=== PATIENT | female | born 1940 | race Caucasian/White ===

== ENCOUNTER → 2020-05-31 | Outpatient (CLI) | payer MEDICARE, BC ==
[~2020-05-31] MED LIST: ASPI81CH PO; Cleocin HCl300 MG PO; FISH OIL + D31 EACH PO; HYDR1TAB94 PO; SIMV40 PO; Senna S Tablet1 EACH
[2020-06-01 13:10] LABS: HPV 16 Negative (Negative); HPV 18 Negative (Negative); HPV OTHER HR TYPES Negative (Negative)
== END | disposition home or self-care (01) ==
LOC: LAB SHORT 16:14 → LAB 16:14
PROVIDERS: Obstetrics & Gynecology
DX: Z01.419 Encounter for gynecological examination (general) (routine) without abnormal findings (principal); R35.0 Frequency of micturition; Z87.440 Personal history of urinary (tract) infections
CPT/HCPCS: 87086; 87624; G0123

== ENCOUNTER → 2021-05-07 | Outpatient (CLI) | payer MEDICARE, BC ==
[2021-05-07 12:00] LABS: Source, Urine Clean Catch
[2021-05-07 13:09] LABS: Appearance, Urine Clear (Clear); Bilirubin, Urine Neg (Neg); Blood, Urine 3+ (Neg); Color, Urine Yellow (P-Yellow); Glucose Qualitative, Urine Neg (Neg); Ketones, Urine Neg (Neg); Leukocyte Esterase, Urine 1+ (Neg); Nitrite, Urine Neg (Neg); Protein, Urine Neg (Neg); Urobilinogen, Urine NORM (Normal)
[2021-05-07 14:03] LABS: Bacteria Few /hpf; White Blood Cells, Urine 0-2 /hpf (0-5)
[2021-05-07 14:04] LABS: Hyaline Casts 0-2 /lpf (0-2); Squamous Epithelial Cells Mod /hpf (Few)
== END | disposition home or self-care (01) ==
LOC: LAB SHORT 11:59 → LAB FUT 05-07 11:50
PROVIDERS: Internal Medicine
DX: N39.0 Urinary tract infection, site not specified (principal)
CPT/HCPCS: 81001; 87086

== ENCOUNTER → 2021-05-15 | Outpatient (CLI) | payer MEDICARE, BC ==
[2021-05-15 12:23] LABS: Source, Urine Clean Catch
[2021-05-15 13:29] LABS: Appearance, Urine Hazy (Clear); Bilirubin, Urine Neg (Neg); Blood, Urine 3+ (Neg); Color, Urine Amber (P-Yellow); Glucose Qualitative, Urine Neg (Neg); Ketones, Urine Neg (Neg); Leukocyte Esterase, Urine 1+ (Neg); Nitrite, Urine Neg (Neg); Protein, Urine 1+ (Neg); Urobilinogen, Urine NORM (Normal)
[2021-05-15 14:40] LABS: Bacteria Mod /hpf; Squamous Epithelial Cells Mod /hpf (Few)
[2021-05-15 14:41] LABS: Mucus Light (0-Heavy)
== END | disposition home or self-care (01) ==
LOC: LAB SHORT 12:01 → LAB 12:01
PROVIDERS: Internal Medicine
DX: N39.0 Urinary tract infection, site not specified (principal)
CPT/HCPCS: 81001; 87086

== ENCOUNTER 2023-05-17 15:51 | Inpatient (IN) | payer OTHER, MEDICARE, BC ==
[~2023-05-17] VITALS: Ht 167.6 cm; Wt 83.2 kg
[~2023-05-17 15:51] MED LIST changes: +Aspir 8181 MG PO; +CALCIUM 500 MG1 EAC2 PO; +LOSA50 PO; +TUMERIC; +VITAMIN B-122000 MC1 PO
[2023-05-17 16:14] LABS: BASOPHILS ABSOLUTE AUTO 0.07 K/mm3 (0.00-0.23); BASOPHILS PERCENT AUTO 1 % (0-2); EOSINOPHILS ABSOLUTE AUTO 0.09 K/mm3 (0.00-0.68); EOSINOPHILS PERCENT AUTO 1 % (0-6); Hematocrit 39.8 % (33.0-51.0); Hemoglobin 13.6 g/dL (11.5-16.0); IMMATURE GRAN ABSOLUTE AUTO 0.07 K/mm3 (0.00-0.10); IMMATURE GRAN PERCENT AUTO 1 % (0-1); LYMPHOCYTES ABSOLUTE AUTO 2.53 K/mm3 (0.84-5.20); LYMPHOCYTES PERCENT AUTO 23 % (21-46); MONOCYTES ABSOLUTE AUTO 0.59 K/mm3 (0.16-1.47); MONOCYTES PERCENT AUTO 5 % (4-13); Mean Corpuscular HGB 29.2 pg (26.0-34.0); Mean Corpuscular HGB Conc 34.2 g/dL (31.5-36.5); Mean Corpuscular Volume 85 fL (80-100); Mean Platelet Volume 9.8 fL (9.1-12.4); NEUTROPHILS ABSOLUTE AUTO 7.75 K/mm3 (1.96-9.15); NEUTROPHILS PERCENT AUTO 70 % (41-73); Platelet Count 179 K/mm3 (150-400); RDW Standard Deviation 37.2 fL (35.1-46.3); Red Blood Cell Count 4.66 M/mm3 (3.80-5.20)
[2023-05-17 16:45] LABS: Albumin, Blood 3.4 g/dL (3.4-5.0); Bilirubin, Total 0.4 mg/dL (0.1-1.0); Creatinine, Blood 0.82 mg/dL (0.40-1.00); Globulin, Blood 3.3 g/dL (2.2-4.0); Potassium, Blood 4.1 mmol/L (3.5-5.5); Total Protein, Blood 6.7 g/dL (6.4-8.2)
[2023-05-17] MEDS ORDERED: PROBIOTIC1 EA13 PO (19:01)
[2023-05-17 20:28] VITALS: BP 161/83
[2023-05-17] MEDS ORDERED: DOCU100 PO (20:39)
[2023-05-18] VITALS (16 sets, daily range): BP systolic 108–159; BP diastolic 49–99
--- NOTE | 2023-05-18 05:33 | NUR ---
NOC SHIFT SUMMARY: PT. ADMITTED AFTER A MECHANICAL FALL WITH LEFT HIP FRACTURE. SURGERY SCHEDULED FOR TODAY. PT. HAS BEEN NPO SINCE MIDNIGHT. TORADOL GIVEN ONCE. NS AT 100 ML/HR. A&O X4.
[2023-05-18 10:04] LABS: BASOPHILS ABSOLUTE AUTO 0.06 K/mm3 (0.00-0.23); BASOPHILS PERCENT AUTO 1 % (0-2); EOSINOPHILS ABSOLUTE AUTO 0.13 K/mm3 (0.00-0.68); EOSINOPHILS PERCENT AUTO 2 % (0-6); Hematocrit 34.7 % (33.0-51.0); Hemoglobin 11.9 g/dL (11.5-16.0); IMMATURE GRAN ABSOLUTE AUTO 0.02 K/mm3 (0.00-0.10); IMMATURE GRAN PERCENT AUTO 0 % (0-1); LYMPHOCYTES ABSOLUTE AUTO 1.93 K/mm3 (0.84-5.20); LYMPHOCYTES PERCENT AUTO 23 % (21-46); MONOCYTES ABSOLUTE AUTO 0.57 K/mm3 (0.16-1.47); MONOCYTES PERCENT AUTO 7 % (4-13); Mean Corpuscular HGB 29.4 pg (26.0-34.0); Mean Corpuscular HGB Conc 34.3 g/dL (31.5-36.5); Mean Corpuscular Volume 86 fL (80-100); Mean Platelet Volume 9.8 fL (9.1-12.4); NEUTROPHILS ABSOLUTE AUTO 5.57 K/mm3 (1.96-9.15); NEUTROPHILS PERCENT AUTO 67 % (41-73); Platelet Count 137 K/mm3 (150-400); RDW Coefficient Variation 12.1 % (11.7-14.2); RDW Standard Deviation 37.7 fL (35.1-46.3); Red Blood Cell Count 4.05 M/mm3 (3.80-5.20); White Blood Cell Count 8.28 K/mm3 (4.00-11.30)
[2023-05-18 10:28] LABS: Bun/Creatinine Ratio 20.8 (12.0-20.0); Calcium, Blood 8.3 mg/dL (8.5-10.1); Creatinine, Blood 0.82 mg/dL (0.40-1.00); Potassium, Blood 4.2 mmol/L (3.5-5.5)
--- NOTE | 2023-05-18 14:49 | NUR ---
PT TO BE TX TO ROOM 215 SURGICAL FLOOR AFTER POST-OP RECOVERY. REPORT GIVEN TO GREGORY RICO. BELONGINGS TAKEN DOWN BY RAMP FLIGHT ATTENDANT TO ROOM 215. JEWELRY IN A CUP PLACED IN PT PURSE.
--- NOTE | 2023-05-18 15:16 | NUR ---
POST OP S/P CLOSED REDUCTION INTERTROCHANTERIC FIXATION OF L HIP BY DR. TERESA, PT TRANSFERRED FROM MEDICAL FLOOR POST OP, AWAKE, A&OX4, DENIES ANY PAIN AT THIS TIME, MOVES TOES ON BLE WELL, 3 SEC CAP REFILL, L HIP DSG C/D/I, PT ON 2L O2 VIA NC, SATS 88% ON RA, ENCOURAGED TO COUGH AND DEEP BREATHE, IS GIVEN W/ INSTRUCTIONS, CONT. TO MONITOR FOR ANY CHANGES.
--- NOTE | 2023-05-18 16:59 | NUR ---
SUMMARY VSS, OOB TO RECLINER CHAIR W/ 2 PERSON MAX ASSIST, PT IS TTWB ON LLE, ONLY REPORTS PAIN WHEN MOVING, UP TO BSC TO VOID, DSG ON L HIP AREA C/D/I, ICE PACK ON AREA, TOLERATING REGULAR FOOD WELL, NO ACUTE CHANGES THIS SHIFT.
[2023-05-19 00:50] VITALS: BP 117/69
[2023-05-19 03:50] VITALS: BP 151/68
--- NOTE | 2023-05-19 04:19 | NUR ---
SHIFT SUMMARY POD 1 R FEMUR NAILING PT A&O X4, ABLE TO REST ALL NIGHT. PT UP TO THE COMMODE, NEEDS REDIRECTION WHEN TRANSFERRING. GET AHEAD OF HERSELF. VOIDING. TOLERATING PO INTAKE. COMPLAINS OF PAIN, MEDICATED PER EMAR. VSS. NO OTHER CONCERNS AT THIS TIME. CALL LIGHT WITHIN REACH
[2023-05-19 05:52] LABS: BASOPHILS ABSOLUTE AUTO 0.03 K/mm3 (0.00-0.23); BASOPHILS PERCENT AUTO 0 % (0-2); EOSINOPHILS ABSOLUTE AUTO 0.04 K/mm3 (0.00-0.68); EOSINOPHILS PERCENT AUTO 1 % (0-6); Hematocrit 30.7 % (33.0-51.0); Hemoglobin 10.3 g/dL (11.5-16.0); IMMATURE GRAN ABSOLUTE AUTO 0.04 K/mm3 (0.00-0.10); IMMATURE GRAN PERCENT AUTO 1 % (0-1); LYMPHOCYTES PERCENT AUTO 14 % (21-46); MONOCYTES ABSOLUTE AUTO 0.76 K/mm3 (0.16-1.47); MONOCYTES PERCENT AUTO 9 % (4-13); Mean Corpuscular HGB 29.3 pg (26.0-34.0); Mean Corpuscular HGB Conc 33.6 g/dL (31.5-36.5); Mean Corpuscular Volume 87 fL (80-100); Mean Platelet Volume 10.3 fL (9.1-12.4); NEUTROPHILS ABSOLUTE AUTO 6.51 K/mm3 (1.96-9.15); NEUTROPHILS PERCENT AUTO 76 % (41-73); Platelet Count 112 K/mm3 (150-400); RDW Standard Deviation 38.5 fL (35.1-46.3); Red Blood Cell Count 3.52 M/mm3 (3.80-5.20); White Blood Cell Count 8.58 K/mm3 (4.00-11.30)
[2023-05-19 06:14] LABS: Bun/Creatinine Ratio 22.6 (12.0-20.0); Calcium, Blood 8.2 mg/dL (8.5-10.1); Creatinine, Blood 0.8 mg/dL (0.40-1.00); Magnesium, Blood 2.2 mg/dL (1.6-2.4); Potassium, Blood 4.5 mmol/L (3.5-5.5)
[2023-05-19 07:13] VITALS: BP 121/58
[2023-05-19 15:02] VITALS: BP 116/70
--- NOTE | 2023-05-19 18:35 | NUR ---
SHIFT SUMMARY PT HAS DONE WELL TODAY. WORKED w/ PT & OT. PAIN WELL MANAGED. ONLY TOOK 1 NARCOTIC TODAY PRIOR TO THERAPIES. EATING, DRINKING, & VOIDING. PLEASANT & COOPERATIVE. PLAN FOR SNF TOMORROW.
[2023-05-19 19:33] VITALS: BP 127/56
--- NOTE | 2023-05-20 04:03 | NUR ---
SHIFT SUMMARY PT RESTED T/O NIGHT. UP TO THE COMMODE 1 ASST FWW AND GAIT BELT. VOIDING, TOLERATING PO INTAKE. DENIES ANY PAIN. DENIES N/T. VSS. PLAN FOR DISCHARGE TODAY TO SNF. NO OTHER CONCERNS AT THIS TIME. CALL LIGHT WITHIN REACH.
[2023-05-20 04:28] VITALS: BP 148/74
[2023-05-20 07:36] VITALS: BP 150/75
[2023-05-20 14:23] VITALS: BP 143/72
--- NOTE | 2023-05-20 16:01 | NUR ---
05/20/23 1601 Marjorie Gutiérrez VERIFICATIONS: EDIT CHART.
--- NOTE | 2023-05-20 16:17 | NUR ---
REPORT CALLED TO [facility]
--- NOTE | 2023-05-20 16:55 | NUR ---
DISCHARGE TO SNF BELONGINGS PACKED. PT FEELS COMFORTABLE w/ DC TO SNF. ONLY CONCERNS ARE OF AT HOME w/ DEMENTIA. PAIN WELL MANAGED. EATING, DRINKING, VOIDING, & PASSING GAS. ESCORTED OUT VIA WC w/ ARRANGED TRANSPORTATION.
== END 2023-05-20 16:55 | DRG 482 ==
LOC: ER 15:51 → SURS 18:51 → MEDS 18:51 → SURS 05-18 14:54
PROVIDERS: Emergency Medicine; Internal Medicine; ADMIT Internal Medicine
PROC: 0QS706Z Reposition Left Upper Femur with Intramedullary Internal Fixation Device, Open Approach (ICD-10-PCS; principal; 2023-05-17)
DX: S72.142A Displaced intertrochanteric fracture of left femur, initial encounter for closed fracture (principal); I10 Essential (primary) hypertension; E78.5 Hyperlipidemia, unspecified; M19.90 Unspecified osteoarthritis, unspecified site; W01.0XXA Fall on same level from slipping, tripping and stumbling without subsequent striking against object, initial encounter; Y92.019 Unspecified place in single-family (private) house as the place of occurrence of the external cause; Z91.048 Other nonmedicinal substance allergy status; Z88.0 Allergy status to penicillin; Z88.1 Allergy status to other antibiotic agents; Z88.8 Allergy status to other drugs, medicaments and biological substances; Z79.82 Long term (current) use of aspirin
CPT/HCPCS: 36415; 73502; 73562-LT; 80048; 80053; 83735; 85025; 93005; 93010; 94760; 96374; 97110; 97116; 97161; 97165; 97530; 97535; 99285-25; A9270; C1713; C1769; J0690; J1100; J1170; J1650; J1885; J2371; J2405; J2704; J3010; J3370; J3480; J7030; J7120

== ENCOUNTER → 2024-05-06 | Outpatient (CLI) | payer MEDICARE, BC ==
[~2024-05-06] MED LIST changes: +DOCU100 PO; +PROBIOTIC1 EA13 PO
[2024-05-06 13:15] LABS: Source, Urine Clean Catch
[2024-05-06 16:03] LABS: Appearance, Urine Clear (Clear); Bilirubin, Urine Neg (Neg); Blood, Urine 1+ (Neg); Color, Urine Yellow (P-Yellow); Glucose Qualitative, Urine Neg (Neg); Ketones, Urine Neg (Neg); Leukocyte Esterase, Urine Neg (Neg); Nitrite, Urine Neg (Neg); Protein, Urine 1+ (Neg); Specific Gravity, Urine 1.015 (1.003-1.022); Urobilinogen, Urine NORM (Normal)
[2024-05-06 16:38] LABS: Bacteria Many /hpf; Squamous Epithelial Cells Few /hpf (Few); White Blood Cells, Urine 0-2 /hpf (0-5)
== END | disposition home or self-care (01) ==
LOC: LAB 13:08 → LAB SHORT 13:08 → LAB FUT 05-06 11:20 → EDSTATUS 05-06 11:20
PROVIDERS: Internal Medicine
DX: N39.0 Urinary tract infection, site not specified (principal)
CPT/HCPCS: 81001; 87086

== ENCOUNTER → 2025-03-30 | Outpatient (CLI) | payer MEDICARE, BC ==
[2025-03-30 13:29] LABS: Source, Urine Clean Catch
[2025-03-30 16:19] LABS: Bilirubin, Urine Neg (Neg); Glucose Qualitative, Urine Neg (Neg); Ketones, Urine Neg (Neg); Leukocyte Esterase, Urine Neg (Neg); Specific Gravity, Urine 1.010 (1.003-1.022); Urobilinogen, Urine NORM (Normal)
[2025-03-30 16:21] LABS: Protein, Urine 2+ (Neg)
[2025-03-30 16:41] LABS: Color, Urine Pale Yellow (P-Yellow)
[2025-03-30 16:44] LABS: White Blood Cells, Urine 0-2 /hpf (0-5)
== END | disposition home or self-care (01) ==
LOC: LAB SHORT 13:27 → LAB 13:27
PROVIDERS: Internal Medicine
DX: N39.0 Urinary tract infection, site not specified (principal)
CPT/HCPCS: 81001

== ENCOUNTER → 2025-04-25 | Outpatient (CLI) | payer MEDICARE, BC ==
[2025-04-25 19:28] LABS: Protein, Urine Quantitative <5.0 mg/dL (0.0-11.9)
== END | disposition home or self-care (01) ==
LOC: LAB 08:00 → LAB SHORT 08:00 → LAB FUT 04-20 16:05
PROVIDERS: Internal Medicine
DX: N04.9 Nephrotic syndrome with unspecified morphologic changes (principal)
CPT/HCPCS: 81050; 84156